=== PATIENT | female | born 1965 | race American Indian/Alaskan Native ===

== ENCOUNTER 2021-03-05 12:50 | Outpatient (CLI) | payer OTHER ==
--- NOTE | 2021-03-05 14:12 | XRay Report ---
LUMBOSACRAL SPINE 3 VIEWS INDICATION: BACK PAIN. COMPARISON: None. IMPRESSION: Normal alignment. Mild disc space narrowing and facet arthropathy are identified throug hout. L3-4 appears to be most affected. The SI joints are unremarkable. No acute osseous or soft tis jackelin abnormality. LEFT HIP 2 VIEWS INDICATION: Left hip pain. COMPARISON: None. IMPRESSION: No acute osseous or soft tissue abnormality. No significant DJD. BILATERAL KNEES 3 VIEWS INDICATION: Bilateral knee pain. COMPARISON: None. IMPRESSION: No acute osseous or soft tissue abnormality. Minimal tibial spine spurring and medial compartment joint space narrowing is identified in both knees. No advanced degenerative changes. No significant joint effusion. Signer Name: Calvin Ramirez Jr, MD Signed: 03/05/2021 2:07 PM Workstation Name: [id number]
== END 2021-03-05 12:51 | disposition home or self-care (01) ==
LOC: XRAY 12:50
PROVIDERS: ATTEND Internal Medicine
DX: M17.0 Bilateral primary osteoarthritis of knee (principal); M48.07 Spinal stenosis, lumbosacral region; M12.88 Other specific arthropathies, not elsewhere classified, other specified site; M77.8 Other enthesopathies, not elsewhere classified
CPT/HCPCS: 72100